=== PATIENT | male | born 1985 | race Caucasian/White ===

== ENCOUNTER 2017-04-22 22:07 | Emergency (ER) | payer OTHER ==
[~2017-04-22] VITALS: Ht 177.8 cm; Wt 106.2 kg
[~2017-04-22 22:07] MED LIST: ACET-1256 PO; FLX5 PO; PRT/20 PO
[2017-04-22 22:12] VITALS: TEMP 36.7; Ht 177.8 cm; Wt 106.2 kg
[2017-04-22 22:28] VITALS: O2SAT 97
[2017-04-22] MEDS ORDERED: TRAM-10 PO (22:37)
[2017-04-22] MEDS ORDERED: GABA-112 PO (22:37)
[2017-04-22] MEDS ORDERED: LORAZEPAM 1 MG TAB SL STA (22:53)
[2017-04-22] MEDS ORDERED: SODIUM CHLORIDE 0.9% 1000ML 1,000 ML IV STA (22:53)
[2017-04-22] MEDS ORDERED: DEXAMETHASONE SOD INJ 10 MG/ML VIAL IV ONE (23:00)
[2017-04-22] MEDS: FENTANYL CITRATE INJ 50 MCG/1 ML 2 ML VIAL IV PRN (23:27)
[2017-04-22 23:28] LABS: BASO % 0.4 %; BASO ABS # 0.04 K/uL (0-0.2); COMPLETE YES; EOS % 4.1 %; IG% 0.2 %; LYMPH % 31.9 %; LYMPH ABS # 3.34 K/uL (1.2-3.4); MEAN CELL VOLUME 87.2 fL (80-100); MEAN CORPUSCULAR HEMOGLOBIN 31.5 pg (25-34); MEAN CORPUSCULAR HGB CONC 36.1 g/dl (32-36); MEAN PLATELET VOLUME 9.9 fL (7.4-10.4); MONO % 6.4 %; PLATELET COUNT 269 K/uL (130-400); WHITE BLOOD COUNT 10.48 K/uL (4.8-10.8)
[2017-04-22 23:57] LABS: ALT/SGPT 45 U/L (12-78); BLOOD UREA NITROGEN 13 mg/dl (7-18); BUN/CREATININE RATIO 14.7 (10-20); C-REACTIVE PROTEIN 1.14 mg/dl (0-0.29); CALCIUM 9.1 mg/dl (8.5-10.1); CARBON DIOXIDE 29 mmol/L (21-32); CHLORIDE 107 mmol/L (98-107); CREATININE 0.91 mg/dl (0.60-1.40); GLUCOSE 85 mg/dl (70-99); POTASSIUM 3.9 mmol/L (3.5-5.1); SODIUM 140 mmol/L (136-145)
[2017-04-23] LABS: ALKALINE PHOSPHATASE 38 U/L (45-117); AST/SGOT 23 U/L (15-37); CKMB/CK RATIO 0.6 (0-3.0)
[2017-04-23 00:19] LABS: URINE APPEARANCE CLEAR (CLEAR); URINE BILIRUBIN NEG (NEG); URINE COLOR YELLOW; URINE NITRITE NEG (NEG); URINE SPECIFIC GRAVITY 1.025 (1.000-1.030); UROBILINOGEN NEG (NEG)
[2017-04-23 00:24] LABS: MANUAL MICROSCOPIC REQUIRED? NO; REVIEW REQ? NO
[2017-04-23] MEDS: FENTANYL CITRATE INJ 50 MCG/1 ML 2 ML VIAL IV PRN (00:27)
[2017-04-23] MEDS ORDERED: OXYC-57 PO (00:42)
[2017-04-23 00:44] VITALS: BP 134/82; PULSE 92; O2SAT 95
[2017-04-23] MEDS ORDERED: PERCOCET HOME PACK PO ONE (00:45)
--- NOTE | 2017-04-23 07:58 | DIAGNOSTIC IMAGING REPORT ---
CHEST 2 VIEWS ROUTINE HISTORY: Atypical CHEST PAIN COMPARISON: Chest 04/14/2015. FINDINGS: The lungs are clear. Cardiac silhouette is normal in size. No pleural effusions. No pneumothorax. IMPRESSION: No acute process. Electronically signed by: Aleksandar Menard M.D. 04/23/2017 7:57 AM Dictated Date/Time: 04/23/2017 7:56 AM
--- NOTE | 2017-04-23 16:03 | EMERGENCY ROOM VISIT NOTE ---
ED Visit Note First contact with patient: 22:15 Chief Complaint: Chest pain. History of Present Illness: Mr. Tillman is a 31 year-old white male who ambulates into the ED accompanied by female friend with multiple complaints. Historically patient reports he has a history of factor V Leiden disorder, chronic pain including chronic chondral chondritis, fibromyalgia, myofascial pain syndrome and rheumatoid arthritis. He goes on to report he has daily chest pain for many years related to his costochondritis. He has been seeming rheumatology and has been on gabapentin. He does report intermittently he has painful flares but the symptoms over the last week as caused him to be concerned. Patient reports approximately 7 days ago he had an exacerbation of his chest discomfort. He call his [employer] and [employer] worker who increased his gabapentin but still continues to work. His main complaint today is chest pain with multiple associated symptoms. He reports his normal chest pain starts over the left sternal border at the level of the nipple and radiates into the left chest a few centimeters. Currently the pain is now radiating into the right side of the chest and is directed superiorly along the clavicle, into the shoulder, around the shoulder and into the thoracic back. He describes this as a sharp and throbbing pain. He rates his discomfort 7/10. His pain worsens when he moves from the sitting to the lying position and back, deep inspiration and palpation. He has not identified any alleviating factors since its exacerbation 6-7 hours ago. Associated with his pain he reports he has difficulty focusing his vision, his skin is sensitive to cold and he has noted new hand tremors and myoclonic jerking of multiple muscles throughout his body and bifrontal headache. He denies fevers, chills, sweats, skin eruptions, skin color changes, dizziness , head trauma, hearing changes, difficulty swallowing, sore throat, neck pain/ stiffness, cough, wheezing, shortness of breath, palpitations, orthopnea, dependent edema, abdominal pain, nausea, vomiting, diarrhea, constipation, rectal bleeding, black/tarry stools, decreased appetite. Review of Systems: As noted above in history of present illness. All body systems were reviewed and found to be negative as noted above. Past Medical History: As previously noted, depression, fatty liver disease, status post appendectomy and bilateral myringotomy. Current Medications: Neurontin, Ultram, Cyclobenzaprine. Allergies to Medications: Patient denies. Social History: Patient is currently employed; he feels safe in his home environment; he admits to tobacco use and denies alcohol use. Physical Examination: Vital Signs: Date Time Temp Pulse Resp B/P (MAP) Pulse Ox O2 Delivery O2 Flow Rate FiO2 04/23/17 00:44 92 18 134/82 95 Room Air 04/23/17 00:00 90 18 142/81 96 Room Air 04/22/17 22:33 102 04/22/17 22:28 97 Room Air 04/22/17 22:12 36.7 100 17 131/80 97 Room Air GENERAL: 31-year-old male in mild to moderate distress due to pain, nontoxic- appearing, afebrile and hemodynamically stable. NEUROLOGICAL: Awake, alert and oriented to person, place and time. Answering questions appropriately and following commands. Normal gait. Good hand eye coordination. SKIN: Warm, dry and pink. No soft tissue eruptions or trauma noted. HEENT: Atraumatic and normocephalic. PERRLA. EOMI without nystagmus. Sclera white and conjunctiva pink. Oral cavity moist and pink. Pharynx is nonerythematous or edematous. Speech normal. No lymphadenopathy. No carotid bruits. Trachea midline. No jugular venous distention. Intermittently patient does have a facial tic predominantly on the left side of the face. BACK: No tenderness over the bony spine. No CVA tenderness. THORAX: Lungs sounds are clear to auscultation and equal bilaterally with symmetrical chest wall. No wheezing, rales or rhonchi. Mild tenderness over the left medial upper chest wall without bony deformity, bony crepitus, swelling , ecchymosis, erythema or subcutaneous air. HEART: Regular rate and rhythm. No gallops, rubs or murmurs are appreciated. No lifts, heaves or thrills. PMI is not displaced. ABDOMEN: Flat, soft and nontender. Positive bowel sounds in all quadrants. No guarding, rigidity or organomegaly. EXTREMITIES: Moves all extremities well on command and with purpose. All distal neurovascular statuses are intact and equal bilaterally. No dependent edema or calf tenderness/cords. ED Course: Patient is assessed as noted above. Patient's medication list was reviewed. Laboratory Testing: Test 04/22/17 23:12 04/22/17 23:24 04/22/17 23:50 Range/Units White Blood Count 10.48 4.8-10.8 K/uL Red Blood Count 4.70 4.7-6.1 M/uL Hemoglobin 14.8 14.0-18.0 g/dL Hematocrit 41.0 42-52 % Mean Corpuscular Volume 87.2 80-100 fL Mean Corpuscular Hemoglobin 31.5 25-34 pg Mean Corpuscular Hemoglobin Concent 36.1 32-36 g/dl Platelet Count 269 130-400 K/uL Mean Platelet Volume 9.9 7.4-10.4 fL Neutrophils (%) (Auto) 57.0 % Lymphocytes (%) (Auto) 31.9 % Monocytes (%) (Auto) 6.4 % Eosinophils (%) (Auto) 4.1 % Basophils (%) (Auto) 0.4 % Neutrophils # (Auto) 5.98 1.4-6.5 K/uL Lymphocytes # (Auto) 3.34 1.2-3.4 K/uL Monocytes # (Auto) 0.67 0.11-0.59 K/uL Eosinophils # (Auto) 0.43 0-0.5 K/uL Basophils # (Auto) 0.04 0-0.2 K/uL RDW Standard Deviation 39.8 36.4-46.3 fL RDW Coefficient of Variation 12.3 11.5-14.5 % Immature Granulocyte % (Auto) 0.2 % Immature Granulocyte # (Auto) 0.02 0.00-0.02 K/uL Erythrocyte Sedimentation Rate 7 0-14 mm/hr Sodium Level 140 136-145 mmol/L Potassium Level 3.9 3.5-5.1 mmol/L Chloride Level 107 98-107 mmol/L Carbon Dioxide Level 29 21-32 mmol/L Anion Gap 4.0 3-11 mmol/L Blood Urea Nitrogen 13 7-18 mg/dl Creatinine 0.91 0.60-1.40 mg/dl Est Creatinine Clear Calc Drug Dose 144.9 ml/min Estimated GFR () 130.6 Estimated GFR (Non- 112.7 BUN/Creatinine Ratio 14.7 10-20 Random Glucose 85 70-99 mg/dl Calcium Level 9.1 8.5-10.1 mg/dl Total Bilirubin 0.2 0.2-1 mg/dl Direct Bilirubin < 0.1 0-0.2 mg/dl Aspartate Amino Transf (AST/SGOT) 23 15-37 U/L Alanine Aminotransferase (ALT/SGPT) 45 12-78 U/L Alkaline Phosphatase 38 45-117 U/L Total Creatine Kinase 338 39-308 U/L Creatine Kinase MB 2.0 0.5-3.6 ng/ml Creatine Kinase MB Ratio 0.6 0-3.0 C-Reactive Protein 1.14 0-0.29 mg/dl Total Protein 7.5 6.4-8.2 gm/dl Albumin 4.2 3.4-5.0 gm/dl Lipase 172 73-393 U/L Bedside Troponin I < 0.030 0-0.045 ng/ml Urine Color YELLOW Urine Appearance CLEAR CLEAR Urine pH 7.0 4.5-7.5 Urine Specific [place] 1.025 1.000-1.030 Urine Protein NEG NEG Urine Glucose (UA) NEG NEG Urine Ketones NEG NEG Urine Occult Blood NEG NEG Urine Nitrite NEG NEG Urine Bilirubin NEG NEG Urine Urobilinogen NEG NEG Urine Leukocyte Esterase NEG NEG Chest X-Rays: Were read by myself and reviewed with Dr. Coles; shows no acute infiltrates, effusions or pneumothorax. Normal heart silhouette. No bony deformity. No previous to compare. EKG: Was read by myself and reviewed with Dr. Coles; shows normal sinus rhythm with sinus arrhythmia. Ventricular rate 88 beats per minute. Normal axis and intervals. No acute ST changes indicating ischemia, injury or infarction. This was compared to her previous from April 2015 in no acute changes were noted. Patient was hydrated with normal saline and he received a total of 200 g of fentanyl IV for pain, 1 mg of Ativan sublingually for tremors and ticks, 10 mg of Decadron IV for possible inflammation. Patient was reassessed multiple times during his stay in the emergency department. Patient's case was reviewed with Dr. Coles; we agreed on diagnostic approach , treatment, disposition and plan. Patient was educated about today's findings and instructed on his treatment plan ; he verbalizes understanding and agreement with this plan. Clinical Impression: Chronic pain syndrome exacerbation. Decision-Making: Rupa my differential diagnosis I considered acute coronary syndrome, thoracic aneurysm, pneumothorax, pulmonary embolism, pancreatitis and other causes. Disposition: Patient discharged home in stable condition accompanied by his girlfriend; prior to departure he was reassessed and subjectively reported he was feeling much better and rated his discomfort 4/10 and he reported resolution of headache, tremors and mono clonic jerking. Plan: Patient was encouraged to continue his other medication except for tramadol; he was given a Percocet prescription for severe pain. His name was checked in the state database and no red flags were noted. He was educated on narcotic precautions. 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 Patient was encouraged return ED for worsening pain, worsening symptoms, fevers or any new/concerning symptoms.
== END 2017-04-23 00:49 | disposition home or self-care (01) ==
LOC: C.EDB 22:09 → C.EDA 04-23 00:49
DX: G89.4 Chronic pain syndrome (principal); D68.51 Activated protein C resistance; M79.7 Fibromyalgia; Z72.0 Tobacco use; Z90.89 Acquired absence of other organs; Z98.890 Other specified postprocedural states; Z79.899 Other long term (current) drug therapy

== ENCOUNTER → 2017-12-11 | Outpatient (CLI) | payer OTHER ==
[~2017-12-11] MED LIST changes: -ACET-1256 PO; +GABA-112 PO; -PRT/20 PO; +TRAM-10 PO
[2017-12-11 16:52] LABS: ALBUMIN 4.2 gm/dl (3.4-5.0); ALT/SGPT 44 U/L (12-78); BLOOD UREA NITROGEN 12 mg/dl (7-18); CALCIUM 9.1 mg/dl (8.5-10.1); CARBON DIOXIDE 25 mmol/L (21-32); CREATININE 1.07 mg/dl (0.60-1.40); GLUCOSE 86 mg/dl (70-99); POTASSIUM 4.2 mmol/L (3.5-5.1); SODIUM 139 mmol/L (136-145)
[2017-12-11 16:55] LABS: ALKALINE PHOSPHATASE 35 U/L (45-117); AST/SGOT 16 U/L (15-37); TOTAL PROTEIN 7.5 gm/dl (6.4-8.2)
== END | disposition home or self-care (01) ==
LOC: C.LABBC 15:41
PROVIDERS: ATTEND Family Medicine Adult Medicine
DX: K76.0 Fatty (change of) liver, not elsewhere classified (principal)